=== PATIENT | female | born 1990 | race Caucasian/White ===

== ENCOUNTER 2025-01-06 09:48 | Emergency (ER) | payer MEDICAID ==
[~2025-01-06] VITALS: Ht 165.1 cm; Wt 65.0 kg
[2025-01-06 09:52] VITALS: BP 127/88; PULSE 90; RESP 16; TEMP 37.1; O2SAT 99
== END 2025-01-06 13:32 | disposition left against medical advice (07) ==
LOC: ER 09:48
DX: M25.521 Pain in right elbow (principal)
CPT/HCPCS: 99281; 99283